=== PATIENT | male | born 1940 | race Caucasian/White ===

== ENCOUNTER 2016-08-09 12:15 | Inpatient (IN) | payer OTHER ==
[2016-09-08] MEDS ORDERED: SKIN ADHESIVE (DERMABOND) 1 EACH TP ONE (06:45)
[2016-09-08] MEDS ORDERED: TRANEXAMIC ACID 3,000 MG/50 ML BAG IRR ONE (06:45)
[2016-09-08] MEDS ORDERED: VANCOMYCIN 1 GM VIAL IV ONE ×2 (06:46)
[2016-09-08] MEDS ORDERED: CHLORHEXIDINE GLUC HIBICLENS 118 ML BTL TP ONE (07:00)
[2016-09-08] MEDS ORDERED: DEXAMETHASONE 4 MG/ML VIAL IVP ONE (07:00)
[2016-09-08] MEDS ORDERED: FAMOTIDINE 20 MG TAB PO ONE (07:00)
[2016-09-08] MEDS ORDERED: ROPI/epiNEPH/KETOROLAC JOINT COCKTAIL IU ONE (07:00)
[2016-09-08] MEDS ORDERED: ACETAMINOPHEN 325 MG TAB PO ONE (07:00)
[2016-09-08] MEDS ORDERED: TRANEXAMIC ACID 3,000 MG in NS 50 ML IRR ONE (07:00)
[2016-09-08] MEDS ORDERED: CEFAZOLIN 2 GM/DEXTR 100 ML IV ONE (07:00)
[2016-09-08] MEDS ORDERED: FAMOTIDINE 20 MG TAB ONE (09:24)
[2016-09-08] MEDS ORDERED: DEXAMETHASONE 4 MG/ML VIAL ONE (09:24)
[2016-09-08] MEDS ORDERED: CEFAZOLIN 2 GM/DEXTROSE/100 ML BAG IV ONE (09:25)
[2016-09-08] MEDS ORDERED: ACETAMINOPHEN 325 MG TAB ONE (09:25)
[2016-09-08] MEDS ORDERED: LIDOCAINE 1% 5 ML SDV ONE (09:25)
[2016-09-08] MEDS ORDERED: LIDOCAINE 1% 5 ML SDV ID PRN (10:15)
[2016-09-08] MEDS ORDERED: LR 1,000 ML IV ONE (10:15)
[2016-09-08] MEDS ORDERED: MIDAZOLAM 2 MG/2 ML VIAL ONE (10:33)
[2016-09-08] MEDS ORDERED: PROPOFOL/EMULSION 500 MG/50 ML BOTTLE IV ONE (10:50)
[2016-09-08] MEDS ORDERED: epHEDrine SULFATE 10 MG/ML SYR ONE ×2 (11:32→12:03)
[2016-09-08] MEDS ORDERED: ROPIVACAINE HCL 150 MG/30 ML INJ ONE (12:09)
[2016-09-08] MEDS ORDERED: PROMETHAZINE HCL 25 MG SUPPR PR PRN (12:43)
[2016-09-08] MEDS ORDERED: LACTULOSE 20 GM/30 ML UDCUP PO PRN (12:43)
[2016-09-08] MEDS ORDERED: DIPHENOXYLATE/ATROPINE LOMOTIL 1 TAB PO PRN (12:43)
[2016-09-08] MEDS ORDERED: ONDANSETRON DISINTEGRATING 4 MG TAB PO PRN (12:43)
[2016-09-08] MEDS ORDERED: POLYETHYLENE GLYCOL 3350 17 GM PKT PO PRN (12:43)
[2016-09-08] MEDS ORDERED: BISACODYL 10 MG SUPP PR PRN (12:43)
[2016-09-08] MEDS ORDERED: CYCLOBENZAPRINE 10 MG TAB PO PRN (12:43)
[2016-09-08] MEDS ORDERED: TEMAZEPAM 15 MG CAP PO PRN (12:43)
[2016-09-08] MEDS ORDERED: diphenhydrAMINE 25 MG CAP PO PRN (12:43)
[2016-09-08] MEDS ORDERED: METOCLOPRAMIDE 10 MG/2 ML VIAL IVP PRN (12:43)
[2016-09-08] MEDS ORDERED: ONDANSETRON 4 MG/2 ML VIAL IVP PRN (12:43)
[2016-09-08] MEDS ORDERED: PROMETHAZINE HCL 25 MG/ML INJ IVP PRN (12:43)
[2016-09-08] MEDS ORDERED: MAGNESIUM HYDROXIDE 30 ML UDCUP PO PRN (12:43)
[2016-09-08] MEDS ORDERED: PHARMACY PAIN CONSULT 1 EA MISC PRN (12:43)
--- NOTE | 2016-09-08 12:43 | POSTOPPROG ---
Post Op Note Date of Operation: 09/08/16 Surgeon: Azra Mueller Herb Digger: tony mueller Anesthesiologist: dr. garcia Anesthesia: Spinal, Other (Specify) (adductor canal block) Pre-op Diagnosis: left knee OA Post-op Diagnosis: same Indication: left knee pain due to OA that failed conservative measures Procedure: L TKA Findings: severe knee OA Inf/Abcess present in the surg proc area at time of surgery?: No EBL: 50-100
[2016-09-08] MEDS ORDERED: LR 1,000 ML IV SCH (13:00)
--- NOTE | 2016-09-08 13:51 | DX ---
Portable AP and Crosstable Lateral Views of the Left Knee, 1:00 PM Clinical History: 76-year-old male in the PACU after a left knee arthroplasty. Comparison Study: Left knee, dated 04/13/2010. Findings: In the interim, the patient has undergone a complete left knee arthroplasty, with anatomic alignment of the distal femoral, proximal tibial, and the posterior patellar components. There are gh osting artifacts from previously placed and subsequently removed hardware in the femoral and tibial d iaphyses. There is normally expected postoperative air in soft tissues. A pneumatic device is present projected over the calf. Impression: Status post left knee arthroplasty, with anatomic alignment.
[2016-09-08] MEDS ORDERED: ceFAZolin 2 GM/DEXTROSE 100 ML IV SCH (14:00)
[2016-09-08 15:46] VITALS: RESP 16
[2016-09-08] MEDS: ACETAMINOPHEN 325 MG TAB PO SCH ×2 (17:10→23:41)
[2016-09-08] MEDS: oxyCODONE IR 5 MG TAB PO PRN ×3 (18:35→23:40)
[2016-09-08] MEDS: ceFAZolin 2 GM in D5W 100 ML IV SCH (18:36)
[2016-09-08] MEDS: ATORVASTATIN CALCIUM 10 MG TAB PO SCH (20:01)
[2016-09-08] MEDS: FAMOTIDINE 20 MG TAB PO SCH (20:01)
[2016-09-08] MEDS: SENNOSIDES/DOCUSATE SODIUM TAB PO SCH (20:01)
[2016-09-08] MEDS ORDERED: GABAPENTIN 100 MG CAP PO SCH (21:00)
[2016-09-08] MEDS ORDERED: DILTIAZEM CD 120 MG CAP PO SCH (21:00)
[2016-09-08] MEDS ORDERED: ZOLPIDEM TARTRATE 5 MG TAB PO SCH (21:00)
--- NOTE | 2016-09-08 23:36 | GOP ---
[f rep st] OPERATIVE REPORT DATE OF OPERATION: 09/08/2016 SURGEON: Elliot Ballard MD TUBULAR STOCK GLASS BULB MACHINE FORMER: Moon Ballard PA-C. ANESTHESIA: Spinal. PREOPERATIVE DIAGNOSIS: Left knee osteoarthritis. POSTOPERATIVE DIAGNOSIS: Left knee osteoarthritis. PROCEDURE PERFORMED: Left total knee arthroplasty with computer navigation and robotic assist. FINDINGS: ESTIMATED BLOOD LOSS: 30 cc. INDICATIONS: This is a 76-year-old male with severe and progressive pain and deformity of the left knee unresponsive to conservative care. Risks and benefits of the surgical intervention were explained in detail. DESCRIPTION OF PROCEDURE: The patient was brought to the operative room and placed on the table in the supine position. Spinal anesthesia was induced without difficulty. A pneumatic tourniquet was applied about the left proximal thigh, and the leg was prepped and draped in a sterile fashion. The leg muñiz was applied. After exsanguination by elevation the tourniquet was inflated to 275 mm of mercury. Incision was made anterior medial from the tibial tuberosity to a point 2 cm proximal to the superior pole of the patella. Medial parapatellar arthrotomy was carried out from the superior pole of the patella and posteriorly in line with the fibers of the Type II VMO. The medial collateral ligament was elevated and the infrapatellar fat pad was resected. The patella was everted and the articular surface was excised. A 35 mm patellar button was placed. The distal femoral guide hole was drilled and the 6 degree alignment ismael was placed. A 10 mm distal femoral cut was made without difficulty. Attention was turned to the tibia and a standard 9 mm cut based on the lateral tibial condyle was performed. The tibial articular surface was excised without difficulty. Attention was turned back to the femur and a size 6 Triathlon femoral cutting block was positioned. Anterior, posterior, and chamfer cuts were made, followed by the intercondylar box cut. The knee was extended and the remnants of the medial and lateral meniscus were excised. The posterior capsule was injected with ropivacaine, epinephrine and Toradol. A size 6 MIS mini-keel tibial tray was positioned. Trial reduction was then carried out. There was excellent range of motion, alignment, and stability using the 9 mm polyethylene. All trials were then removed. The joint was thoroughly irrigated and carefully dried. Two packages of cement and 2 grams of vancomycin were mixed in the vacuum mixer and placed on the fixation surfaces of all surfaces of the components. The components were implanted and all excess cement was thoroughly removed. The permanent 9 mm X3 polyethylene was placed without difficulty. The tourniquet was deflated and all bleeders were coagulated. The wound was thoroughly irrigated and closed using interrupted sutures of 2-0 Vicryl for the joint capsule. The subcu was closed with 3-0 Vicryl and the skin with 4-0 Monocryl. Dermabond and Steri-Strips were applied followed by a compressive dressing. The patient was then moved from the operating room to the recovery room in good condition, having tolerated the procedure well. /[id number]/MODL MTDD
[2016-09-09] MEDS: ceFAZolin 2 GM in D5W 100 ML IV SCH (04:17)
[2016-09-09 05:17] LABS: HEMOGLOBIN 13.9 g/dL (13.7-17.5)
[2016-09-09] MEDS: oxyCODONE IR 5 MG TAB PO PRN ×3 (06:08→11:54)
[2016-09-09] MEDS: ACETAMINOPHEN 325 MG TAB PO SCH ×2 (06:08→11:55)
[2016-09-09] MEDS: ATORVASTATIN CALCIUM 10 MG TAB PO SCH (07:41)
[2016-09-09] MEDS: SENNOSIDES/DOCUSATE SODIUM TAB PO SCH (07:42)
[2016-09-09] MEDS: RIVAROXABAN 20 MG TAB PO SCH ×2 (07:44→09:47)
--- NOTE | 2016-09-09 09:10 | SOAPPROG ---
SOAP Progress Note Assessment/Plan: Assessment: Nasir is doing well POD 1 s/p L TKA 1. pain management: pain is well controlled on oral pain meds 2. VTE ppx: recommend resume xarelto daily, cont ALEXANDER hose and SCDs. 3. d/c planning: d/c to home pending release from PT 4. postop urinary retention: straight cath'd yesterday, resolved today. Plan: 09/09/16 09:08 09/09/16 09:09 Subjective: Nasir is doing well today, denies SOB, chest pain and n/v. Objective: Vital Signs Temp Pulse Resp BP Pulse Ox 36.8 C 56 L 16 103/63 93 09/09/16 07:38 09/09/16 07:38 09/09/16 07:38 09/09/16 07:38 09/09/16 07:38 Laboratory Results 09/09/16 04:15 09/08/16 09/09/16 09/10/16 05:59 05:59 05:59 Intake Total 2435 200 Output Total 3130 350 Balance -695 -150 LLE: incision dressing is clean and dry, NVI, +Pf/df ICD10 Worksheet Patient Problems: Problems Problem Status Diagnosed Primary localized osteoarthritis of left knee Acute
[2016-09-09] MEDS: FAMOTIDINE 20 MG TAB PO SCH (09:47)
[2016-09-09 11:13] VITALS: BP 117/60; PULSE 60; TEMP 98.4; O2SAT 97
== END 2016-09-09 12:25 | disposition home or self-care (01) | DRG 470 ==
LOC: F3N 09-08 09:05
PROVIDERS: ADMIT Orthopaedic Surgery; ATTEND Orthopaedic Surgery
PROC: 0SRD0J9 Replacement of Left Knee Joint with Synthetic Substitute, Cemented, Open Approach (ICD-10-PCS; principal; 2016-09-08 11:15)
DX: M17.12 Unilateral primary osteoarthritis, left knee (principal); I48.0 Paroxysmal atrial fibrillation; E78.2 Mixed hyperlipidemia; G47.30 Sleep apnea, unspecified
CPT/HCPCS: 97116-GP; 97161-GP; 97165-GO; 97530-GP; C1713; G8978-GP-CI; G8979-GP-CI; G8980-GP-CI; G8987-GO-CI; G8988-GO-CI; G8989-GO-CI; J0171; J0690; J1100; J1885; J2250; J2704; J2795; J3370

== ENCOUNTER → 2017-10-07 | Outpatient (CLI) | payer OTHER | LOC: FIMAGING 10:57 | PROVIDERS: ATTEND Physician Assistant | DX: M53.86 Other specified dorsopathies, lumbar region (principal); M43.16 Spondylolisthesis, lumbar region; M51.85 Other intervertebral disc disorders, thoracolumbar region; M48.062 Spinal stenosis, lumbar region with neurogenic claudication; M51.36 Other intervertebral disc degeneration, lumbar region ==

== ENCOUNTER → 2018-10-08 | Outpatient (CLI) | payer OTHER | LOC: FIMAGING 10:49 | PROVIDERS: ATTEND Specialist | DX: R31.29 Other microscopic hematuria (principal); R35.0 Frequency of micturition ==